=== PATIENT | male | born 1960 | race Two or more races ===

== ENCOUNTER 2022-05-18 17:26 | Emergency (ER) | payer OTHER ==
[~2022-05-18] VITALS: Ht 152.4 cm; Wt 68.0 kg
--- NOTE | 2022-05-18 17:30 | NUR ---
[id number] C/O SUBSTERNAL CHEST PAIN X1HR 810, GIVEN 3 NITRO SPRAY AND 325 ASPIRIN P/S 2/10 UPON ARRIVAL. ATTACHED TO MONITOR, NO RESP DISTRESS NOTED. WARM BLANKET PROVIDED FOR COMFORT. AWAITING MD ORDERS.
--- NOTE | 2022-05-18 17:45 | NUR ---
IV ESTABLISHED R FA 20G. LABS DRAWN AND COLLECTED AT BEDSIDE.
[2022-05-18 17:53] LABS: BASOPHILS % (AUTO) 0.4 % (0.0-2.0); EOSINOPHILS % (AUTO) 0.4 % (0.0-6.0); HEMATOCRIT 37 % (39-51); HEMOGLOBIN 12.5 g/dL (13.5-17.5); LYMPHOCYTES # (AUTO) 1.8 K/uL (0.8-4.8); LYMPHOCYTES % (AUTO) 23.5 % (20.0-44.0); MEAN CORPUSCULAR HGB CONC 34 g/dl (31.0-36.0); MEAN CORPUSCULAR VOLUME 89 fL (80-96); MONOCYTES # (AUTO) 0.6 K/uL (0.1-1.30); MONOCYTES % (AUTO) 8.2 % (2.0-12.0); NEUTROPHILS # (AUTO) 5.2 K/uL (1.8-8.9); NEUTROPHILS % (AUTO) 67.5 % (43.0-81.0); PLATELET COUNT (AUTO) 290 K/uL (150-450); RED BLOOD CELL COUNT(AUTO) 4.11 MIL/uL (4.5-6.0); WHITE BLOOD COUNT (AUTO) 7.7 K/uL (4.3-11.0)
[2022-05-18 18:27] LABS: CALCIUM, SERUM 9.2 mg/dL (8.5-10.1); CARBON DIOXIDE 27 mmol/L (21-32); CHLORIDE 104 mmol/L (98-107); GLUCOSE 71 mg/dL (74-106); POTASSIUM 3.2 mmol/L (3.5-5.1); SODIUM SERUM 141 mmol/L (136-145); UREA NITROGEN, BLOOD 25 mg/dL (7-18)
--- NOTE | 2022-05-18 18:54 | NUR ---
Patient discharged to home in stable condition. Written and verbal after care instructions given. Patient verbalizes understanding of instruction.IV removed. Catheter intact and site benign. Pressure and 4x4 applied to site. No bleeding noted.
[2022-05-18 18:55] VITALS: BP 129/76
== END 2022-05-18 18:55 | disposition home or self-care (01) ==
LOC: ER 17:35
DX: R07.2 Precordial pain (principal); E11.9 Type 2 diabetes mellitus without complications; G40.909 Epilepsy, unspecified, not intractable, without status epilepticus; I10 Essential (primary) hypertension
CPT/HCPCS: 36415; 71045-TC; 80048-TC; 83880; 84484-TC; 85025-TC